=== PATIENT | female | born 1970 | race African-American/Black ===

== ENCOUNTER 2020-07-04 07:47 | Emergency (ER) | payer MEDICAID ==
[~2020-07-04] VITALS: Ht 167.6 cm; Wt 82.0 kg
[2020-07-04] MEDS ORDERED: ACETAMINOPHEN 325MG TABLET PO ONE ×2 (09:45→10:15)
[2020-07-04 10:11] VITALS: BP 125/93
[2020-07-04] MEDS ORDERED: BISM262T15 MT (10:18)
[2020-07-04] MEDS ORDERED: TOPUD MT (10:18)
== END 2020-07-04 10:38 | disposition home or self-care (01) ==
LOC: ER 07:59
DX: J06.9 Acute upper respiratory infection, unspecified (principal); M79.18 Myalgia, other site; R05 Cough; Z20.822 Contact with and (suspected) exposure to COVID-19; I49.9 Cardiac arrhythmia, unspecified
CPT/HCPCS: 93005; 99284; C9803; U0003; Z7610